=== PATIENT | male | born 1980 | race Caucasian/White ===

== ENCOUNTER → 2018-01-27 | Outpatient (CLI) | payer OTHER ==
--- NOTE | 2018-01-27 11:25 | Diagnostic Imaging Report ---
INDICATION: Right foot swelling and pain. TIME OF EXAM: 9:06 AM 3 views of the right foot were obtained. FINDINGS: There is some soft tissue swelling along the dorsum of the foot. No soft tissue gas or radiopaque foreign body is seen. The metatarsals are intact. No periosteal reaction or bone destruction is seen. No fractures are identified. The phalanges are unremarkable. Midfoot and hindfoot are unremarkable. IMPRESSION: Dorsal soft tissue swelling. No acute bony abnormality is detected. Message left at 9:21 a.m by cvb. Dictated by: Dictated on workstation # [id number]
== END ==
LOC: RAD 08:12
PROVIDERS: ATTEND Family Medicine
DX: L03.115 Cellulitis of right lower limb (principal)
CPT/HCPCS: 73630

== ENCOUNTER → 2019-08-04 | Outpatient (CLI) | payer OTHER ==
--- NOTE | 2019-08-04 17:56 | Diagnostic Imaging Report ---
INDICATION: Left-sided abdominal pain COMPARISON: None FINDINGS: 2 supine radiographic views of the abdomen were obtained and demonstrate nondistended loops of small bowel. There is no large collection of free peritoneal air. Mild air and stool are seen scattered throughout the colon. No unexpected extraosseous calcifications or radiopaque foreign bodies are seen. Bony structures show no gross acute abnormalities. IMPRESSION: 1. Nonobstructed small bowel gas pattern. Dictated by: Dictated on workstation # [id number]
== END ==
LOC: RAD 17:14
PROVIDERS: ATTEND Family Medicine
DX: R10.9 Unspecified abdominal pain (principal); R19.7 Diarrhea, unspecified
CPT/HCPCS: 74018

== ENCOUNTER 2019-08-06 20:00 | Emergency (ER) | payer OTHER ==
[~2019-08-06] VITALS: Ht 180 cm; Wt 112.0 kg
--- OUTSIDE RECORDS SUMMARY | 2019-08-06 20:06 | XMS REPORT | Continuity of Care Document ---
Author Organization Unknown Address Unknown Phone Unavailable Allergies There is no data. Medications There is no data. Problems Date Dx Coded Attending Type Code Diagnosis Diagnosed By 01/29/2018 FERNIE GAXIOLA MD Ot L03.115 CELLULITIS OF RIGHT LOWER LIMB 02/07/2018 FERNIE GAXIOLA MD Ot L03.115 CELLULITIS OF RIGHT LOWER LIMB 08/05/2019 FERNIE GAXIOLA MD Ot R10. 9 UNSPECIFIED ABDOMINAL PAIN 08/05/2019 FERNIE GAXIOLA MD Ot R19. 7 DIARRHEA, UNSPECIFIED Procedures There is no data. Results There is no data. Encounters ACCT No. Visit Date/Time Discharge Status Pt. Type Provider Facility Loc./Unit Complaint [id number] 01/27/2018 08:12:00 018 23:59:59 CLS Outpatient FERNIE GAXIOLA MD [facility] RAD PAIN IN R FOOT,CELLULIT US IN DORSUM R FOOT [id number] 08/04/2019 17:14:[address] Outpatient FERNIE GAXIOLA MD [facility] RAD L SIDED ABD PAIN,DIARRHEA
[2019-08-06] MEDS ORDERED: SUCR1TAB (20:15)
[2019-08-06] MEDS ORDERED: CHOL4PAC2 (20:15)
[2019-08-06] MEDS ORDERED: PANT40TA3 (20:15)
[2019-08-06] MEDS ORDERED: METR-145 (20:15)
[2019-08-06] MEDS ORDERED: LISI1TAB29 (20:15)
[2019-08-06] MEDS ORDERED: BUSP5TAB59 (20:15)
[2019-08-06] MEDS ORDERED: MELO7.5T46 (20:15)
[2019-08-06] MEDS ORDERED: CHOL378P (20:15)
[2019-08-06] MEDS ORDERED: CIPR500T4 (20:15)
[2019-08-06] MEDS ORDERED: LACTATED RINGERS 1,000 ML IV ONE (20:16)
[2019-08-06] MEDS ORDERED: ONDA4TAB11 PO (20:27)
--- NOTE | 2019-08-06 20:27 | ED Abdominal Pain ---
General Chief Complaint: Abdominal/GI Problems Stated Complaint: LLQ PAIN,TIGHTNESS IN THROAT Source of Information: Patient, Spouse (by phone) Exam Limitations: No Limitations History of Present Illness Date Seen by Provider: Aug 06, 2019 Time Seen by Provider: 20:05 Initial Comments Patient presents ER by private conveyance with chief complaint of left lower quadrant abdominal pain diarrhea for a month and a little nausea with occasional dry heaves. He's had poor oral intake and now the past day or so he's developed a little sore scratchy throat without fever cough shortness of breath headache rash. No known sick contacts. No travel to high endemic areas of coronavirus. Patient was told by Dr. Delfin Gaxiola outpatient that he thought he had diverticulitis and was started on Flagyl and ciprofloxacin as well as cholestyramine and pantoprazole. He's been on these medications for about 2 days. He doesn't feel severely any worse with his belly is just worried about stroke. He has history of allergies to codeine but no anaphylaxis or angioedema. No history of colonoscopy or colon cancer himself or the family. Allergies and Home Medications Allergies Coded Allergies: codeine (Verified Allergy, Unknown, 08/06/19) Home Medications Ondansetron 4 Mg Tab.rapdis, 4 MG PO Q6H PRN for NAUSEA-1ST LINE Prescribed by: YAMILA HARDIN on 08/06/192026 Patient Home Medication List Home Medication List Reviewed: Yes Review of Systems Review of Systems Constitutional: No chills, No diaphoresis EENTM: See HPI; No Blurred Vision, No Double Vision Respiratory: Denies Cough, Denies Shortness of Air Cardiovascular: Denies Chest Pain, Denies Lightheadedness Gastrointestinal: See HPI, Abdominal Pain; Denies Constipated; Diarrhea, [place]; Denies Poor Appetite; Poor Fluid Intake; Denies Vomiting Genitourinary: Denies Burning, Denies Discharge Musculoskeletal: No back pain, No joint pain Psychiatric/Neurological: Denies Anxiety, Denies Depressed All Other Systems Reviewed Negative Unless Noted: Yes Past Vhtuwin-Ceauap-Speohl Hx Patient Social History Alcohol Use: Denies Use Recreational Drug Use: No Smoking Status: Never a Smoker Recent Foreign Travel: No Contact w/Someone Who Travel: No Physical Exam Vital Signs Vital Signs - First Documented 08/06/19 20:05 Temp 36.6 Pulse 105 Resp 18 B/P (MAP) 148/97 (114) Pulse Ox 99 O2 Delivery Room Air Capillary Refill : Height/Weight/BMI Height: '" Weight: lbs. oz. kg; BMI Method: General Appearance: WD/WN, no apparent distress HEENT: normal ENT inspection, TMs normal, pharyngeal erythema (mild retropharyngeal injection without exudate or tonsillar swelling); No tonsillar e xudate Neck: full range of motion, supple, normal inspection Respiratory: lungs clear, normal breath sounds, no respiratory distress, no accessory muscle use Cardiovascular: normal peripheral pulses, regular rate, rhythm Gastrointestinal: normal bowel sounds, soft, no organomegaly, tenderness (mild left lower quadrant abdomen) Extremities: no pedal edema, normal capillary refill Neurologic/Psychiatric: alert, normal mood/affect, oriented x 3 Skin: normal color, warm/dry Progress/Results/Core Measures Results/Orders Lab Results Laboratory Tests Test 08/06/19 20:15 Range/Units White Blood Count 8.9 4.3-11.0 10^3/uL Red Blood Count 5.97 H 4.35-5.85 10^6/uL Hemoglobin 17.4 13.3-17.7 G/DL Hematocrit 49 40-54 % Mean Corpuscular Volume 81 80-99 FL Mean Corpuscular Hemoglobin 29 25-34 PG Mean Corpuscular Hemoglobin Concent 36 32-36 G/DL Red Cell Distribution Width 13.0 10.0-14.5 % Platelet Count 275 130-400 10^3/uL Mean Platelet Volume 8.9 7.4-10.4 FL Neutrophils (%) (Auto) 63 42-75 % Lymphocytes (%) (Auto) 27 12-44 % Monocytes (%) (Auto) 9 0-12 % Eosinophils (%) (Auto) 1 0-10 % Basophils (%) (Auto) 1 0-10 % Neutrophils # (Auto) 5.6 1.8-7.8 X 10^3 Lymphocytes # (Auto) 2.4 1.0-4.0 X 10^3 Monocytes # (Auto) 0.8 0.0-1.0 X 10^3 Eosinophils # (Auto) 0.1 0.0-0.3 10^3/uL Basophils # (Auto) 0.1 0.0-0.1 10^3/uL Sodium Level 137 135-145 MMOL/L Potassium Level 3.6 3.6-5.0 MMOL/L Chloride Level 101 98-107 MMOL/L Carbon Dioxide Level 22 21-32 MMOL/L Anion Gap 14 5-14 MMOL/L Blood Urea Nitrogen 13 7-18 MG/DL Creatinine 1.29 0.60-1.30 MG/DL Estimat Glomerular Filtration Rate > 60 BUN/Creatinine Ratio 10 Glucose Level 90 70-105 MG/DL Calcium Level 9.4 8.5-10.1 MG/DL Corrected Calcium 9.0 8.5-10.1 MG/DL Total Bilirubin 0.8 0.1-1.0 MG/DL Aspartate Amino Transf (AST/SGOT) 32 5-34 U/L Alanine Aminotransferase (ALT/SGPT) 77 H 0-55 U/L Alkaline Phosphatase 78 40-136 U/L C-Reactive Protein High Sensitivity 0.18 0.00-0.50 MG/DL Total Protein 7.6 6.4-8.2 GM/DL Albumin 4.5 3.2-4.5 GM/DL Lipase 21 8-78 U/L Group A Streptococcus Screen NEGATIVE NEGATIVE My Orders Orders - YAMILA HARDIN Cbc With Automated Diff (08/06/19 20:16) Comprehensive Metabolic Panel (08/06/19 20:16) Hs C Reactive Protein (08/06/19 20:16) Rapid Strep A Screen (08/06/19 20:16) Lipase (08/06/19 20:16) Ct Abdomen/Pelvis W (08/06/19 20:16) Ed Iv/Invasive Line Start (08/06/19 20:16) Lactated Ringers (Lr 1000 Ml Iv Solution (08/06/19 20:16) Famotidine Injection (Pepcid Injection) (08/06/19 20:30) Ondansetron Injection (Zofran Injectio (08/06/19 20:30) Iohexol Injection (Omnipaque 350 Mg/Ml 1 (08/06/19 21:30) Received Contrast (Hold Metformin- Contr (08/06/19 21:30) Ns (Ivpb) (Sodium Chloride 0.9% Ivpb Bag (08/06/19 21:30) Medications Given in ED Current Medications Medications Dose Ordered Sig/Shayy Route Start Time Stop Time Status Last Admin Dose Admin Famotidine 20 mg ONCE ONCE IVP 08/06/19 20:30 08/06/19 20:31 DC 08/06/19 20:23 20 MG Iohexol 100 ml ONCE ONCE IV 08/06/19 21:30 08/06/19 21:31 DC 08/06/19 21:25 100 ML Lactated Ringer's 1,000 ml @ 0 mls/hr Q0M ONCE IV 08/06/19 20:16 08/06/19 20:19 DC 08/06/19 20:23 0 MLS/HR Ondansetron HCl 4 mg ONCE ONCE IVP 08/06/19 20:30 08/06/19 20:31 DC 08/06/19 20:23 4 MG Sodium Chloride 100 ml ONCE ONCE IV 08/06/19 21:30 08/06/19 21:31 DC 08/06/19 21:26 80 ML Vital Signs/I&O 08/06/19 20:05 Temp 36.6 Pulse 105 Resp 18 B/P (MAP) 148/97 (114) Pulse Ox 99 O2 Delivery Room Air Progress Progress Note : Time: 20:21 Progress Note Patient could be experiencing a viral pharyngitis but does not appear to be having anaphylaxis or any emergency. He does appear to be having diverticulitis was tense abdominal tenderness and said that he was told he may be getting a CT by his primary care doctor. After discussing this with him with elected to go ahead and get a CT of the abdomen and pelvis given some fluids since he clearly is having trouble hydrating and has a heart rate in the upper 90s to low 100. He does not have fever and is not septic at this time. He is already on antibiotics so blood cultures probably not necessary right now. If the CT doesn't show abscess or anything else that needs intervention and he has otherwise reasonable labs and we continued him up some fluids and nausea medicine and we'll let him continue to trial outpatient medicines. As far as his risk for coronavirus which is what concerned him enough to come in to the ER we have explained that he is probably at population risk and reviewed not 10 to test him today. If he wants to be tested to contact his primary care doctor or the health department. Diagnostic Imaging Diagonstic Imaging: CT Plain Films/CT/US/NM/MRI: abdomen, pelvis Comments NAME: POLO MIRANDA MED REC#: [id number] PT STATUS: REG ER : 1980 PHYSICIAN: YAMILA HARDIN MD ADMIT DATE: 08/06/19/ER Draft Date of Exam:08/06/19 CT ABDOMEN/PELVIS W PROCEDURE: CT abdomen and pelvis with contrast. TECHNIQUE: Multiple contiguous axial images were obtained through the abdomen and pelvis after administration of intravenous contrast. Auto Exposure Controls were utilized during the CT exam to meet ALARA standards for radiation dose reduction. INDICATION: Diarrhea. Right inguinal pain. Abdominal pain. COMPARISON: None. FINDINGS: Included portions of the lung bases show punctate micronodule within the posterior left inferior sulcus that measures 3 mm (image 17, series 2). CT abdomen: Normal appendix is identified. Small bowel loops are nondistended. The kidneys, adrenal glands, spleen and pancreas have a normal CT appearance. Liver is diffusely hypodense on this postcontrast exam consistent with underlying hepatic steatosis. No focal hepatic mass is identified. There is no loculated fluid collection, free fluid or free air within the abdomen. No abnormal mesenteric or retroperitoneal adenopathy is seen. Osseous structures show no acute abnormality. CT pelvis: Urinary bladder is grossly unremarkable. There is no loculated fluid collection, free fluid or free air within the pelvis. No abnormal lymph nodes are seen. Fat-containing left inguinal hernia is noted. Osseous structures show no acute abnormality. IMPRESSION: 1. No acute abnormality is seen within the abdomen or pelvis. 2. Small micronodule within the posterior margins of the left lower lobe. If patient is in a high-risk category, such as history of smoking, one-year follow-up is recommended to ensure stability. 3. Hepatic steatosis. Dictated on workstation # [id number] Dict: 08/06/192135 Trans: 08/06/192146 [facility] [id number] Interpreted by: NHI NIXON MD Electronically signed by: Reviewed: Reviewed by Me Departure Impression Primary Impression: Diverticulitis of intestine Qualified Codes: K57.32 - Diverticulitis of large intestine without perforation or abscess without bleeding Disposition: 01 HOME, SELF-CARE Condition: Stable Departure-Patient Inst. Decision time for Depature: 21:51 Referrals: DELFIN GAXIOLA MD (PCP/Family) Primary Care Physician Patient Instructions: Diverticulitis (DC) Add. Discharge Instructions: You appear to have a viral pharyngitis which can be caused by thousands of different viruses. COVID-19 certainly is a possibility however you're not exhibiting any significant symptoms to warrant testing in the emergency room today. You can elect to pursue testing through your primary care office or the health department by phoning ahead and discussing your symptoms if you choose. Diverticulitis should respond in the next couple days favorably to the antibiotic regimen chosen by your primary care physician. If you feel like you're having difficulty keeping up with your fluid intake or pain or develop significant fever then we would encourage you to return to the ER for further management. Zofran to be taken 1 tablet under the tongue every 6 hours as needed for nausea or vomiting. Tylenol 1000 mg every 8 hours as needed for pain or fever. Avoid Mobic, Aleve, ibuprofen, naproxen etc. NSAIDs will slow healing of your intestine. You may resume them one to 2 weeks after completion of your infection. Continue using the other medications as prescribed by your primary care provider. Plan to follow-up with Dr. Gaxiola in 1-2 weeks. All discharge instructions reviewed with patient and/or family. Voiced underst anding. Scripts Ondansetron (Ondansetron Odt) 4 Mg Tab.rapdis 4 MG PO Q6H PRN for NAUSEA-1ST LINE, #20 TAB 0 Refills Prov: YAMILA HARDIN 08/06/19 YAMILA HARDIN Aug 06, 2019 20:26
[2019-08-06] MEDS ORDERED: FAMOTIDINE 20MG/2ML IV (PEPCID) IVP ONE (20:30)
[2019-08-06] MEDS ORDERED: ONDANSETRON 4 MG/2 ML (SDV) Z0FRAN IVP ONE (20:30)
[2019-08-06 20:33] LABS: BASOPHILS # (AUTO) 0.1 10^3/uL (0.0-0.1); BASOPHILS % (AUTO) 1 % (0-10); EOSINOPHILS # (AUTO) 0.1 10^3/uL (0.0-0.3); EOSINOPHILS % (AUTO) 1 % (0-10); HEMATOCRIT 49 % (40-54); HEMOGLOBIN 17.4 G/DL (13.3-17.7); LYMPHOCYTES # (AUTO) 2.4 X 10^3 (1.0-4.0); LYMPHOCYTES % (AUTO) 27 % (12-44); MEAN CORPUSCULAR HEMOGLOBIN 29 PG (25-34); MEAN CORPUSCULAR HGB CONC 36 G/DL (32-36); MEAN CORPUSCULAR VOLUME 81 FL (80-99); MEAN PLATELET VOLUME 8.9 FL (7.4-10.4); MONOCYTES # (AUTO) 0.8 X 10^3 (0.0-1.0); MONOCYTES % (AUTO) 9 % (0-12); NEUTROPHILS # (AUTO) 5.6 X 10^3 (1.8-7.8); NEUTROPHILS % (AUTO) 63 % (42-75); PLATELET COUNT 275 10^3/uL (130-400); WHITE BLOOD COUNT 8.9 10^3/uL (4.3-11.0)
[2019-08-06 20:46] LABS: ALANINE AMINOTRANSFERASE 77 U/L (0-55); ALBUMIN 4.5 GM/DL (3.2-4.5); ALKALINE PHOSPHATASE 78 U/L (40-136); BILIRUBIN,TOTAL 0.8 MG/DL (0.1-1.0); BUN/CREATININE RATIO 10; CALCIUM 9.4 MG/DL (8.5-10.1); CARBON DIOXIDE 22 MMOL/L (21-32); CHLORIDE 101 MMOL/L (98-107); CREATININE SERUM 1.29 MG/DL (0.60-1.30); GFR ESTIMATED > 60; GLUCOSE 90 MG/DL (70-105); LIPASE 21 U/L (8-78); POTASSIUM 3.6 MMOL/L (3.6-5.0); SODIUM 137 MMOL/L (135-145); TOTAL PROTEIN 7.6 GM/DL (6.4-8.2)
[2019-08-06] MEDS ORDERED: NS 100 ML (IVPB) BAG IV ONE (21:30)
[2019-08-06] MEDS ORDERED: IOHEXOL 350 MG/ML 100 ML (OMNIPAQUE 350) VIAL IV ONE (21:30)
[2019-08-06] MEDS ORDERED: HOLD METFORMIN - RECEIVED CONTRAST 20 ML VIAL IV SCH (21:30)
--- NOTE | 2019-08-06 21:48 | Diagnostic Imaging Report ---
PROCEDURE: CT abdomen and pelvis with contrast. TECHNIQUE: Multiple contiguous axial images were obtained through the abdomen and pelvis after administration of intravenous contrast. Auto Exposure Controls were utilized during the CT exam to meet ALARA standards for radiation dose reduction. INDICATION: Diarrhea. Right inguinal pain. Abdominal pain. COMPARISON: None. FINDINGS: Included portions of the lung bases show punctate micronodule within the posterior left inferior sulcus that measures 3 mm (image 17, series 2). CT abdomen: Normal appendix is identified. Small bowel loops are nondistended. The kidneys, adrenal glands, spleen and pancreas have a normal CT appearance. Liver is diffusely hypodense on this postcontrast exam consistent with underlying hepatic steatosis. No focal hepatic mass is identified. There is no loculated fluid collection, free fluid or free air within the abdomen. No abnormal mesenteric or retroperitoneal adenopathy is seen. Osseous structures show no acute abnormality. CT pelvis: Urinary bladder is grossly unremarkable. There is no loculated fluid collection, free fluid or free air within the pelvis. No abnormal lymph nodes are seen. Fat-containing left inguinal hernia is noted. Osseous structures show no acute abnormality. IMPRESSION: 1. No acute abnormality is seen within the abdomen or pelvis. 2. Small micronodule within the posterior margins of the left lower lobe. If patient is in a high-risk category, such as history of smoking, one-year follow-up is recommended to ensure stability. 3. Hepatic steatosis. Dictated on workstation # [id number]
[2019-08-06 21:56] VITALS: BP 156/101
== END 2019-08-06 21:56 | disposition home or self-care (01) ==
LOC: EDUNIT# 20:00 → ER 20:02
DX: K57.32 Diverticulitis of large intestine without perforation or abscess without bleeding (principal)
CPT/HCPCS: 36415; 74177; 80053; 83690; 85025; 86141; 87430

== ENCOUNTER → 2019-10-29 | Outpatient (CLI) | payer OTHER ==
[~2019-10-29] MED LIST: BUSP5TAB59; CHOL378P; CHOL4PAC2; CIPR500T4; LISI1TAB29; MELO7.5T46; METR-145; ONDA4TAB11 PO; PANT40TA3; SUCR1TAB
== END ==
LOC: CARD 09:26
PROVIDERS: ATTEND Internal Medicine Cardiovascular Disease
DX: I10 Essential (primary) hypertension (principal); E66.8 Other obesity; Z82.49 Family history of ischemic heart disease and other diseases of the circulatory system
CPT/HCPCS: 93306

== ENCOUNTER → 2019-10-30 | Outpatient (CLI) | payer OTHER ==
[~2019-10-30] VITALS: Ht 180 cm; Wt 107.0 kg
[~2019-10-30] MED LIST changes: +CATHETER FLUSH 10 ML SYR IV PRN; +REGADENOSON 0.4 MG/5 ML SYR (LEXISCAN) IV ONE
[2019-10-30 08:48] VITALS: BP 116/114
--- NOTE | 2019-11-03 13:13 | STRESS TEST ---
DATE OF SERVICE: 10/30/2019 RESTING AND POST REGADENOSON TECHNETIUM-99M TETROFOSMIN SPECT CT IMAGING ORDERING PHYSICIAN: Dr. Parish. PRIMARY PHYSICIAN: Dr. Pierce. CLINICAL DIAGNOSIS: Chest discomfort, hypertension and shortness of breath. Baseline images were carried out after injection of 10.77 mCi of technetium-99m Tetrofosmin. This was followed by 0.4 mg Regadenoson and 29.4 mCi of technetium-99m Tetrofosmin for stress imaging. The electrocardiogram showed sinus rhythm. There was subtle nonspecific ST abnormality. The electrocardiogram did not change significantly with the Regadenoson infusion. The patient tolerated the procedure well. Review of images at rest and following stress does not indicate any significant perfusion defects consistent with myocardial ischemia or infarction. Gated images show normal global left ventricular systolic function with normal regional wall motion. Left ventricular ejection fraction is calculated to be 69%. Left ventricular end diastolic volume is 71 mL. TID is absent (1.17). CONCLUSIONS: 1. No evidence of any significant myocardial ischemia or infarction. 2. Normal regional wall motion. 3. Normal global left ventricular systolic function with a calculated ejection fraction of 69%. Job ID: [id number] DocumentID: [id number] Dictated Date: 11/03/2019 13:05:20 Rayon Tester Date: 11/03/2019 13:13:14 Dictated By: OLGA PARISH MD, MA, FACP, FACC,
== END ==
LOC: CARD 07:05
PROVIDERS: ATTEND Internal Medicine Cardiovascular Disease
DX: I10 Essential (primary) hypertension (principal); E66.9 Obesity, unspecified; R07.89 Other chest pain; R06.02 Shortness of breath; Z82.49 Family history of ischemic heart disease and other diseases of the circulatory system
CPT/HCPCS: 78452; 93017; A9502

== ENCOUNTER 2019-11-19 05:41 | Outpatient (CLI) | payer OTHER ==
[~2019-11-19] VITALS: Ht 180 cm; Wt 106.0 kg
[~2019-11-19 05:41] MED LIST changes: -BUSP5TAB59; +BUSP5TAB59 PO; -CATHETER FLUSH 10 ML SYR IV PRN; -LISI1TAB29; +LISI1TAB29 PO; -REGADENOSON 0.4 MG/5 ML SYR (LEXISCAN) IV ONE
[2019-11-19] MEDS ORDERED: LORA10TA7 PO (15:15)
[2019-11-19] MEDS ORDERED: CETI10TA21 PO (15:15)
[2019-11-19] MEDS ORDERED: DEXL60CA PO (15:15)
== END 2019-11-19 15:30 | disposition home or self-care (01) ==
LOC: PREOP 05:41
PROVIDERS: ATTEND Surgery
DX: Z01.818 Encounter for other preprocedural examination (principal)

== ENCOUNTER 2019-11-26 09:55 | Day surgery (SDC) | payer OTHER ==
[~2019-11-26] VITALS: Ht 180 cm; Wt 106.0 kg
[2019-11-26] VITALS (12 sets, daily range): BP systolic 110–152; BP diastolic 74–115
[~2019-11-26 09:55] MED LIST changes: +CETI10TA21 PO; +DEXL60CA PO; +LORA10TA7 PO
--- NOTE | 2019-11-26 10:12 | Progress Note-Pre Operative ---
Pre-Operative Progress Note H&P Reviewed The H&P was reviewed, patient examined and no changes noted. Date Seen by Provider: Nov 26, 2019 Time Seen by Provider: 10:00 Date H&P Reviewed: Nov 26, 2019 Time H&P Reviewed: 10:00 Pre-Operative Diagnosis: sx left ing hernia YONG KUMAR MD Nov 26, 2019 10:12
[2019-11-26] MEDS ORDERED: morphine INJ 10 MG/ML 1ML (SYR OR VIAL) IVP PRN ×2 (10:15)
[2019-11-26] MEDS ORDERED: oxyCODONE/APAP 5/325MG (PERCOCET 5) TABLET PO PRN (10:15)
[2019-11-26] MEDS ORDERED: ACETAMINOPHEN 325 MG TABLET PO PRN (10:15)
[2019-11-26] MEDS ORDERED: HYDR-3817 PO (10:15)
[2019-11-26] MEDS ORDERED: ONDANSETRON 4 MG/2 ML (SDV) Z0FRAN IVP PRN ×2 (10:15→15:00)
--- NOTE | 2019-11-26 10:16 | Discharge Inst-Surgical ---
D/C Lap Instructions-JOSÉ New, Converted, or Re-Newed RX: RX on Chart Follow Up Appt in 2 weeks Activity as tolerated No driving for 24 hours No driving while on pain medications Incentive Spirometry use every 2 hours while awake Regular Diet Symptoms to Report: Fever over 101 degree F, Nausea/Vomiting Infection Signs and Symptoms to report: Increased redness, Foul odor of wound, Increased drainage Bathing instructions: May shower Operative Area Clean/Dry; Keep incision clean/dry If any problems/questions: Contact your physician or go to Emergency Room YONG KUMAR MD Nov 26, 2019 10:16
[2019-11-26] MEDS ORDERED: ceFAZolin 2 GM IV Premixed 50 ML IV ONE (10:30)
[2019-11-26] MEDS ORDERED: ceFAZolin 2 GM IV Premixed 50 ML ONE (10:37)
[2019-11-26] MEDS ORDERED: LACTATED RINGERS 1,000 ML IV PRN (10:38)
[2019-11-26 11:01] LABS: BASOPHILS # (AUTO) 0.1 10^3/uL (0.0-0.1); BASOPHILS % (AUTO) 1 % (0-10); EOSINOPHILS # (AUTO) 0.1 10^3/uL (0.0-0.3); EOSINOPHILS % (AUTO) 2 % (0-10); HEMATOCRIT 48 % (40-54); HEMOGLOBIN 16.3 G/DL (13.3-17.7); LYMPHOCYTES # (AUTO) 1.6 X 10^3 (1.0-4.0); LYMPHOCYTES % (AUTO) 24 % (12-44); MEAN CORPUSCULAR HEMOGLOBIN 29 PG (25-34); MEAN CORPUSCULAR HGB CONC 34 G/DL (32-36); MEAN CORPUSCULAR VOLUME 84 FL (80-99); MEAN PLATELET VOLUME 8.7 FL (7.4-10.4); MONOCYTES # (AUTO) 0.5 X 10^3 (0.0-1.0); MONOCYTES % (AUTO) 8 % (0-12); NEUTROPHILS # (AUTO) 4.4 X 10^3 (1.8-7.8); NEUTROPHILS % (AUTO) 66 % (42-75); PLATELET COUNT 247 10^3/uL (130-400); RED CELL DISTRIBUTION WIDTH 13.6 % (10.0-14.5); WHITE BLOOD COUNT 6.6 10^3/uL (4.3-11.0)
[2019-11-26] MEDS ORDERED: BUP/EPI 0.5% 1:200,000 (MARCAINE) 10ML VIAL IJ ONE (12:55)
[2019-11-26] MEDS ORDERED: LIDOCAINE PF 2% 5 ML (XYLOCAINE) VIAL ONE (13:28)
[2019-11-26] MEDS ORDERED: ONDANSETRON 4 MG/2 ML (SDV) Z0FRAN ONE (13:28)
[2019-11-26] MEDS ORDERED: ROCURONIUM 10 MG/ML 5 ML SYRINGE IV ONE (13:28)
[2019-11-26] MEDS ORDERED: proPOfol 200 MG/20 ML (DIPRIVAN) VIAL IV ONE (13:28)
[2019-11-26] MEDS ORDERED: MIDAZOLAM 2 MG/2 ML (VERSED) VIAL ONE (13:28)
[2019-11-26] MEDS ORDERED: fentaNYL INJECTION 100 MCG/2 ML AMP ONE (13:28)
[2019-11-26] MEDS ORDERED: SEVOFLURANE (ULTANE) 15 ML INHAL SOLN ONE (13:30)
[2019-11-26] MEDS ORDERED: NEOSTIGMINE 3 MG/3 ML VIAL ONE (14:23)
[2019-11-26] MEDS ORDERED: GLYCOPYRROLATE 0.2 MG/ML (ROBINUL) 2 ML VIAL ONE (14:23)
[2019-11-26] MEDS ORDERED: morphine INJ 10 MG/ML 1ML (SYR OR VIAL) ONE (14:45)
--- NOTE | 2019-11-26 14:46 | Progress Note-Post Operative ---
Post-Operative Progess Note Surgeon (s)/College Coach (s) Surgeon Dr. Joe Beyer M.D. College Coach: Billy Law APRN Pre-Operative Diagnosis sx left ing hernia Post-Operative Diagnosis Left indirect inguinal hernia Procedure & Operative Findings Date of Procedure 11/26/19 Procedure Performed/Findings Laparoscopic left inguinal hernia repair with mesh Anesthesia Type GET Estimated Blood Loss Estimated blood loss (mL): Minimal Specimens/Packing Specimens Removed None BILLY LAW FREIGHT LOADING SUPERVISOR Nov 26, 2019 14:46
[2019-11-26] MEDS ORDERED: HYDROmorphone 2 MG/ML VIAL (DILAUDID) ONE (14:57)
[2019-11-26] MEDS ORDERED: HYDROmorphone 2 MG/ML VIAL (DILAUDID) IV ONE (15:00)
[2019-11-26] MEDS ORDERED: morphine INJ 10 MG/ML 1ML (SYR OR VIAL) IVP ONE (15:00)
--- NOTE | 2019-11-26 15:34 | Anesthesia-General Post-Op ---
General Patient Condition Mental Status/LOC: Same as Preop Cardiovascular: Satisfactory Nausea/Vomiting: Absent Respiratory: Satisfactory Pain: Controlled Complications: Absent Post Op Complications Complications None Follow Up Care/Instructions Patient Instructions None needed. Anesthesia/Patient Condition Patient Condition Patient is doing well, no complaints, stable vital signs, no apparent adverse anesthesia problems. PK FERGUSON DO Nov 26, 2019 15:34
--- NOTE | 2019-11-26 16:50 | NUR ---
REPORTED PATIENT WAS ON BAG #2 OF LR; RECEIVED 900ML OUT OF THAT, DISCARDED 100ML.
--- NOTE | 2019-11-26 23:16 | OPERATIVE REPORT ---
DATE OF SERVICE: 11/26/2019 ATTENDING PRIMARY CARE PHYSICIAN: Dr. Delfin Pierce. PREOPERATIVE DIAGNOSIS: Symptomatic left inguinal hernia. POSTOPERATIVE DIAGNOSIS: Symptomatic left indirect inguinal hernia, no right inguinal hernia component. PROCEDURE: Laparoscopic left inguinal hernia repair with mesh. SURGEON: Yong Kumar MD MOBILE HOME SET UP PERSON: Billy Hogue APRN ANESTHESIA: General endotracheal. ESTIMATED BLOOD LOSS: Minimal. FINDINGS: Same as postoperative diagnosis. DISPOSITION: The patient tolerated the procedure well. INDICATIONS: The patient is a 39-year-old male who developed left lower groin pain for the past 2 months. He was seen at [facility]. A CT scan was performed, which did not show any abnormalities. He then underwent a colonoscopy thinking that this was potentially a diverticulosis and diverticulitis and no significant diverticulosis identified. He reports that he has had pain in the left inguinal region and upon examination, he did have reproducible pain as well as a palpable inguinal hernia. DESCRIPTION OF PROCEDURE: The patient was brought to the operating room, laid supine on the table. After adequate IV pain and sedative medications and general endotracheal intubation, the abdomen was prepped and draped in standard surgical fashion. A 0.5% Marcaine with epinephrine was then used to anesthetize overlying skin in the infraumbilical rim and a transverse skin incision made using a 15 blade. A sharp towel clamp was used to retract the abdominal wall anteriorly and a Veress needle inserted with a low opening pressure of 0 mmHg. The abdomen was then insufflated to 15 mmHg pressure. The Veress needle removed and a 10 mm XL trocar placed followed by a 10 mm 45-degree angle laparoscope visualizing the peritoneal cavity. A 4-quadrant abdominal exploration was performed. There was a left indirect inguinal hernia with a cord lipoma identified. There was no right inguinal hernia component. Under direct visualization, we then proceeded to place bilateral 5 mm ports after the skin and peritoneal lining were anesthetized using 0.5% Marcaine with epinephrine and a transverse skin incision made using a 15 blade. The patient was then placed in Trendelenburg position and the peritoneal lining was then opened using a Sonicision. We then proceeded laterally towards the conjoined tendon and inguinal ligament laterally and towards Kenney's ligament medially. We then proceeded with inferior dissection identifying a significant size cord lipoma and indirect inguinal hernia component. Good hemostasis was observed. A medium size 3DMax polypropylene mesh was then placed into the defect and absorbable tacks placed in Kenney's ligament medially and conjoint tendon laterally. The peritoneal lining was then placed over the mesh and few tacks placed to hold this in place with visualization of good hemostasis. The 10 mm port site fascia and peritoneum were then closed under direct visualization using a Jonathon-Mimi device and 0 Vicryl suture. The abdomen was desufflated and remaining ports removed. All skin incisions were closed using 4-0 Monocryl running subcuticular sutures. Wounds were then cleaned and covered with Dermabond. The patient tolerated the procedure well. We will start IV normal pain medication as well as a clear liquid diet. Once he is tolerating clears, has good pain control with oral pain medication and is ambulating well, we will discharge him home. He will be instructed to do no heavy lifting or exertion for the next two weeks and slowly advance as tolerated until he reaches six weeks from the surgery date. Job ID: [id number] DocumentID: [id number] Dictated Date: 11/26/2019 14:31:25 Repairer Finished Metal Date: 11/26/2019 23:16:22 Dictated By: YONG KUMAR MD
== END 2019-11-26 17:10 | disposition home or self-care (01) ==
LOC: SDC 09:55
PROVIDERS: ATTEND Surgery
DX: K40.90 Unilateral inguinal hernia, without obstruction or gangrene, not specified as recurrent (principal); I10 Essential (primary) hypertension; F41.9 Anxiety disorder, unspecified; K21.0 Gastro-esophageal reflux disease with esophagitis; K44.9 Diaphragmatic hernia without obstruction or gangrene; Z79.899 Other long term (current) drug therapy; Z88.5 Allergy status to narcotic agent; Z80.3 Family history of malignant neoplasm of breast; Z82.49 Family history of ischemic heart disease and other diseases of the circulatory system
CPT/HCPCS: 49650; 85025; 87081; C1781; 36415

== ENCOUNTER → 2020-07-07 | Outpatient (CLI) | payer OTHER ==
[~2020-07-07] MED LIST changes: -CETI10TA21 PO; +CETI10TA49 PO; -CIPR500T4; +CIPR500T5; +HYDR-3817 PO; -PANT40TA3; +PANT40TA52
--- NOTE | 2020-07-07 11:25 | Diagnostic Imaging Report ---
PROCEDURE: US Scrotum. TECHNIQUE: Multiple real-time grayscale images were obtained over the scrotum in various projections bilaterally. INDICATION: Left scrotal swelling. FINDINGS: Right testicle measures 2.7 x 5 x 2.6 cm. Left testicle measures 3.1 x 5.1 x 3.8 cm. There are no testicular masses. Normal blood flow to both testes. The left epididymis is enlarged and hypervascular without a discrete mass. Right epididymis is normal. There is a moderate hydrocele noted on the left. There are no varicoceles. IMPRESSION: 1. Moderate hydrocele on the left. 2. Enlarged left epididymis with mild hypervascularity probably secondary to epididymitis. Clinical correlation. Dictated by: Dictated on workstation # [id number]
== END ==
LOC: RAD 10:41
PROVIDERS: ATTEND Surgery
DX: N43.3 Hydrocele, unspecified (principal); N45.1 Epididymitis
CPT/HCPCS: 76870